=== PATIENT | male | born 1980 | race Caucasian/White ===

== ENCOUNTER 2020-02-10 08:14 | Emergency (ER) | payer OTHER, SELFPAY ==
[2020-02-10 08:15] VITALS: BP 116/72; PULSE 85; RESP 18; TEMP 36.3; O2SAT 94; BMI 55.1
[2020-02-10 08:25] VITALS: BP 93/42; PULSE 84; RESP 18; O2SAT 95
--- NOTE | 2020-02-10 08:36 | EKG12_ITS ---
Test Reason : Blood Pressure : / mmHG Vent. Rate : 087 BPM Atrial Rate : 087 BPM P-R Int : 138 ms QRS Dur : 082 ms QT Int : 380 ms P-R-T Axes : 012 002 015 degrees QTc Int : 457 ms Normal sinus rhythm Normal ECG Confirmed by LORENZO GREENWOOD, NATALIA ([id number]), mapping editor JOAQUIN REED ([id number]) on 02/13/2020 2:46:52 PM Referred By: CARLI Confirmed By:CARSON VENTURA MD
[2020-02-10 08:46] LABS: Absolute Lymphocyte Count 1.48 X10^3/uL (0.83-4.51); Absolute Neutrophil Count 5.6 X10^3/uL (2.0-7.7); Basophil# 0.06 X10^3/uL; Basophil% 0.7 % (0-1); Eosinophil# 0.09 X10^3/uL; Eosinophils% 1.1 % (0-5); Hematocrit 43.6 % (40-54); Hemoglobin 14.6 g/dL (13.0-16.5); Lymphocyte # 1.48 X10^3/ul (4.0); Lymphocyte % 18.4 % (19-41); Mean Corp Hgb Conc 33.5 g/dL (32-36); Mean Corpuscular Hgb 30.5 pg (27.0-32.0); Mean Corpuscular Volume 91.2 fL (80-94); Mean Platelet Vol. 9.5 fl (6.2-12.0); Monocyte# 0.74 X10^3/uL; Monocyte% 9.2 % (0-10); NRBC Flagged by Analyzer 0 % (0-5); Neutrophil # 5.64 X10^3/uL (2.7-7.7); Neutrophil % 70.1 % (47-70); Platelet Count 229 K/mm3 (150-450); RBC Distribution Width CV 12.1 % (11.6-14.6); RBC Distribution Width SD 40.4 fl (35.1-43.9); Red Blood Count 4.78 M/mm3 (4.6-6.2); White Blood Count 8.1 K/mm3 (4.4-11.0)
[2020-02-10 08:55] VITALS: BP 106/64; BP 114/66; BP 118/58; PULSE 89; PULSE 90; PULSE 93
[2020-02-10] MEDS: 0.9% Normal Saline 1,000 ML 1000 ML IV (09:03)
--- NOTE | 2020-02-10 09:15 | ED.DCSUM_ITS ---
- ER Visit Summary Date of Service: 02/10/20 Chief Complaint: Accidental drug ingestion History of Present Illness: The patient is a 39 M who presents after accidentally taking medication for his horse. Patient took 0.5 mg of pergolide. Patient took it approximately 2 hours prior to arrival. Patient feels tired and fatigued. Patient states he broke out into a sweat. Patient admits to some nausea but denies any vomiting. Patient denies any fevers or chills. Patient denies any chest pain or shortness of breath. Patient denies any lightheadedness or dizziness. Patient denies any visual changes. Physical Examination: Vital signs are stable. Patient is afebrile. Patient is in no acute distress. Oral mucosa is pink and moist. Neck is supple. Trachea is midline. There is no JVD noted. Heart was regular rate and rhythm. Lungs are clear and equal bilaterally. Abdomen is soft. Bowel sounds are normal. There is no tenderness. There is no rebound or guarding noted. Skin is warm dry. Cranial nerves II through XII are intact. There are no focal motor or sensory deficits noted. Extremities are intact. There is no calf tenderness or edema. Test Results: EKG showed normal sinus rhythm with a rate of 87. There are no acute ST or T wave changes. There are no prior EKGs available for comparison. CBC and comprehensive metabolic profile were obtained and were essentially within normal limits with the exception of slightly elevated AST of 69 and ALT of 124. Calcium was 5.2 however the specimen was hemolyzed. Glucose was 216. Patient is diabetic. Urine tox screen was positive for methamphetamines. Serum alcohol level was negative. Acetaminophen and salicylate levels were normal. Emergency Department Course and Treatment: Patient was given IV fluids. Patient was feeling better on reevaluation. Patient states his sweating has improved. Patient still feels tired. Patient was instructed to hold his blood pressure medicine today but to restart it again tomorrow. Patient was instructed to follow-up with his primary care physician in 5 to 7 days. Patient understood and was agreeable with the plan. All questions were answered. Disposition: Discharge home Impression: 1. Accidental medication ingestion This note was generated with [employer] software. It may contain incorrect words, spelling, and punctuation that were not noted in review of the chart prior to signing ED Disposition - Plan for ED Patient: Disposition: Home or Assisted Living Diagnosis: Accidental drug ingestion Instructions: ED Accidental Ingestion Nontoxic Adult Referrals: [facility],Out of [NON-STAFF] - 5-7 Days Additional Instructions: Hold your lisinopril today. Restart it tomorrow as previously prescribed.
[2020-02-10 09:40] LABS: ALB/GLOB Ratio 0.9 RATIO (0.9-2.4); AST(SGOT) 69 U/L (15-37); Alanine Aminotransfer ALT/SGPT 124 U/L (16-61); Albumin, Serum 3.6 g/dL (3.2-5.0); Alkaline Phosphatase 45 U/L (45-117); Anion Gap 4 (5-15); BUN 14 mg/dL (7-18); BUN/Creat Ratio 15.6 RATIO (10-20); Calcium,Total 8.7 mg/dL (8.5-10.1); Chloride 103 mmol/L (98-107); EST Glomerular Filtration Rate 100 mL/min (>60); Est Glom Filt Rate - Afr Amer 121 mL/min (>60); Estimated Creatinine Clearance 120.95 ml/min; Globulin 3.9 g/dL (2.2-4.2); Glucose 216 mg/dL (74-106); Potassium 5.2 mmol/L (3.5-5.1); Protein, Total 7.5 g/dL (6.4-8.2); Sodium Level 135 mmol/L (136-145)
[2020-02-10 09:45] VITALS: BP 130/64; PULSE 91; RESP 16; O2SAT 98
[2020-02-10 09:55] LABS: Amphetamine Urine VISTA NEGATIVE (<1000 ng/mL); Barbiturate Urine VISTA NEGATIVE (< 200 ng/mL); Benzodiazepine Urine VISTA NEGATIVE (< 200 ng/mL); Cocaine Urine VISTA NEGATIVE (< 300 ng/mL); Ecstacy Urine VISTA POSITIVE (< 500 ng/mL); Methadone Urine VISTA NEGATIVE (< 300 ng/mL); PCP Urine VISTA NEGATIVE (< 25 ng/mL); THC Urine VISTA NEGATIVE (< 50 ng/mL); Vista UDS pH Range 5
[2020-02-10 10:02] LABS: Acetaminophen (Tylenol) Level < 2.0 ug/mL (10.0-30.0); Alcohol, Blood (Medical)-Serum < 3.0 mg/dL; Salicylate < 1.7 mg/dL (2.8-20.0)
[2020-02-10 10:45] VITALS: BP 130/56; PULSE 89; RESP 18; O2SAT 98
[2020-02-10 11:18] VITALS: BP 112/63; PULSE 91; RESP 18; O2SAT 97
== END 2020-02-10 11:23 | disposition home or self-care (01) ==
PROVIDERS: Emergency Provider Emergency Medicine; PCP Internal Medicine
DX: T42.8X1A Poisoning by antiparkinsonism drugs and other central muscle-tone depressants, accidental (unintentional), initial encounter (principal); E11.9 Type 2 diabetes mellitus without complications; I10 Essential (primary) hypertension; E78.00 Pure hypercholesterolemia, unspecified; F41.9 Anxiety disorder, unspecified; Z79.84 Long term (current) use of oral hypoglycemic drugs
CPT/HCPCS: 80053; 80307; 80320; 80329; 85025; 93005; 96360; 96361; 99285; J7030; A4216; G0480